=== PATIENT | male | born 1955 ===

== ENCOUNTER 2018-04-04 16:21 | Emergency (ER) | payer MEDICAID ==
[2018-04-04] MEDS ORDERED: Neomycin/Polymyxin/Hydrocort Otic Soln BOTTLE AS STA (17:31)
--- NOTE | 2018-04-04 17:37 | C.PDOC ---
History Of Present Illness 62 year old male presents to ED with complaint of dizziness. Patient states that he woke up feeling dizzy and then went back to bed. Patient states that his medication didn't help with the dizziness. Patient had an EKG done in Dr.Mah cline's done, but the results are still unknown. Patient describes experiencing a fullness and pain in his left ear. Patient states that he swims regularly in a pool. Patient denies any facial changes, vision impairment, and slurred speech. Time Seen by Provider: 04/04/18 16:56 Chief Complaint (Nursing): Dizziness/Lightheaded History Per: Patient History/Exam Limitations: no limitations Onset/Duration Of Symptoms: Hrs Current Symptoms Are (Timing): Still Present - Symptoms Of CVA Associated Symptoms: denies: Impaired Speech, New Vision Deficit(Left), New Vision Deficit(Right), Other (facial changes) Past Medical History Reviewed: Historical Data, Nursing Documentation, Vital Signs Vital Signs: Last Vital Signs Temp 97.8 F 04/04/18 16:25 Pulse 79 04/04/18 16:25 Resp 20 04/04/18 16:25 BP 157/103 H 04/04/18 16:25 Pulse Ox 96 04/04/18 16:25 - Medical History PMH: HTN Denies: Chronic Kidney Disease Surgical History: No Surg Hx Family History: States: Unknown Family Hx - Social History Hx Alcohol Use: No Hx Substance Use: No - Immunization History Hx Tetanus Toxoid Vaccination: No Hx Influenza Vaccination: No Hx Pneumococcal Vaccination: No Review Of Systems Constitutional: Negative for: Fever, Chills, Weakness ENT: Positive for: Ear Pain (left ear fullness and pain) Cardiovascular: Negative for: Chest Pain, Palpitations Respiratory: Negative for: Cough, Shortness of Breath Gastrointestinal: Negative for: Nausea, Vomiting Neurological: Positive for: Dizziness. Negative for: Weakness, Numbness Physical Exam - Physical Exam Appears: Well, Non-toxic, No Acute Distress Skin: Normal Color, Warm, Dry Head: Atraumatic, Normacephalic Eye(s): bilateral: PERRL, EOMI, Other (no nystagmus) Ear(s): Left: TM Erythema, Other (discharge, no mass), Right: Normal Neck: Normal, Supple Chest: Symmetrical, No Deformity Respiratory: No Accessory Muscle Use, No Rales, No Rhonchi, No Wheezing Gastrointestinal/Abdominal: Bowel Sounds (normal), Soft, No Tenderness Extremity: Capillary Refill (<2 seconds) Extremity: Bilateral: Atraumatic, Normal Color And Temperature Pulses: Left Radial: Normal, Right Radial: Normal Neurological/Psych: Oriented x3, Normal Speech, Normal Cognition ED Course And Treatment - Laboratory Results Result Diagrams: 04/04/18 17:56 04/04/18 17:56 O2 Sat by Pulse Oximetry: 96 (RA) Progress Note: Patient given Antivert PO and Corticosporin . Disposition Counseled Patient/Family Regarding: Studies Performed, Diagnosis, Need For Followup, Rx Given - Disposition Referrals: Rafat Green MD [Staff Provider] - Disposition: HOME/ ROUTINE Disposition Time: 19:20 Condition: STABLE Additional Instructions: FOLLOW UP WITH YOUR DOCTOR IN 1-2 DAYS CONTINUE YOUR HYPERTENSION MEDICATOINS USE MEDICATIONS DIRECTED RETURN TO ER IF SYMPTOMS Prescriptions: Meclizine [Meclizine*] 25 mg PO Q6 #15 tab Ofloxacin Otic 0.3% [Floxin 0.3% Otic Soln] 10 drop GT ONCE #1 bottle Instructions: Outer Ear Infection (DC), Vertigo (a Type of Dizziness) (DC) Forms: [employer] (Kazakh) Print Language: AZERI - Clinical Impression Clinical Impression: Otitis externa, left, Peripheral vertigo - Scribe Statement The provider has reviewed the documentation as recorded by the Scribe (Isabel Zuniga) All medical record entries made by the Scribe were at my direction and personally dictated by me. I have reviewed the chart and agree that the record accurately reflects my personal performance of the history, physical exam, medical decision making, and the department course for this patient. I have also personally directed, reviewed, and agree with the discharge instructions and disposition.
[2018-04-04 18:01] LABS: BASO % 0.3 % (0.0-2.0); EOS # 0.1 K/uL (0.0-0.7); EOS % 1.6 % (0.0-4.0); HEMOGLOBIN 15.7 g/dL (12.0-18.0); LYMPH # 2.2 K/uL (1.0-4.3); LYMPH % 30.4 % (20.0-40.0); MEAN CELL VOLUME 90.3 fL (80.0-94.0); MEAN CORPUSCULAR HEMOGLOBIN 29.5 pg (27.0-31.0); MEAN CORPUSCULAR HGB CONC 32.6 g/dL (33.0-37.0); MEAN PLATELET VOLUME 8.1 fL (7.2-11.7); MONO # 0.6 K/uL (0.0-0.8); MONO % 8.5 % (0.0-10.0); NEUT # 4.4 K/uL (1.8-7.0); NEUT % 59.2 % (50.0-75.0); NRBC % 0.1 % (0.0-2.0); RBC 5.31 Mil/uL (4.40-5.90); RED CELL DISTRIBUTION WIDTH 15.2 % (11.5-14.5); WHITE BLOOD COUNT 7.3 K/uL (4.8-10.8)
[2018-04-04 18:59] LABS: ALB/GLOB RATIO 1.4 (1.0-2.1); ALBUMIN 4.2 g/dL (3.5-5.0); BLOOD UREA NITROGEN 10 mg/dL (9-20); CALCIUM 9.3 mg/dl (8.6-10.4); GFR NON-AFRICAN AMERICAN > 60
[2018-04-04 19:00] LABS: ALT/SGPT 36 U/L (21-72); AST/SGOT 29 U/L (17-59)
[2018-04-04 19:42] VITALS: BP 150/91; PULSE 70; RESP 18; TEMP 98.7; O2SAT 95
== END 2018-04-04 19:43 | disposition home or self-care (01) ==
LOC: C.ER 16:21
DX: H60.92 Unspecified otitis externa, left ear (principal); H81.399 Other peripheral vertigo, unspecified ear; I10 Essential (primary) hypertension